=== PATIENT | male | born 1985 | race Caucasian/White ===

== ENCOUNTER 2016-08-18 22:44 | Emergency (ER) | payer OTHER ==
[~2016-08-18] VITALS: Ht 170.2 cm; Wt 75.0 kg
[2016-08-18] MEDS ORDERED: ONDANSETRON 4 MG INJ IV STA (22:50)
[2016-08-18] MEDS ORDERED: SOD CHLORIDE 0.9% 1,000 ML IV STA (22:50)
[2016-08-18 22:51] VITALS: Ht 170.2 cm; Wt 75.0 kg
[2016-08-18 23:07] LABS: ADD SCAN DIFF NO
[2016-08-18 23:11] LABS: ABNORMAL IP MESSAGE 1; BASOPHIL # 0.1 10^3/ul (0.0-0.1); BASOPHILS % 0.4 % (0.0-2.0); EOSINOPHILS # 0.1 10^3/ul (0.0-0.5); EOSINOPHILS % 1.1 % (0.0-7.0); HEMATOCRIT 39.2 % (42.0-52.0); HEMOGLOBIN 13.4 g/dl (14.0-18.0); LYMPHOCYTES # 6.3 10^3/ul (0.8-2.9); LYMPHOCYTES % 47.1 % (15.0-51.0); MEAN CORPUSCULAR HEMOGLOBIN 30.4 pg (29.0-33.0); MEAN CORPUSCULAR HGB CONC 34.2 g/dl (32.0-37.0); MEAN CORPUSCULAR VOLUME 88.9 fl (82.0-101.0); MEAN PLATELET VOLUME 10.1 fl (7.4-10.4); MONOCYTE # 0.9 10^3/ul (0.3-0.9); NEUTROPHIL # 5.9 10^3/ul (1.6-7.5); NEUTROPHILS % 43.9 % (39.0-77.0); PLATELET COUNT 375 10^3/UL (140-415); RED BLOOD COUNT 4.41 10^6/ul (4.70-6.10); RED CELL DISTRIBUTION WIDTH 11.9 % (11.5-14.5); WHITE BLOOD COUNT 13.3 10^3/ul (4.8-10.8)
[2016-08-18] MEDS ORDERED: WELBUTRIN PO (23:11)
[2016-08-18] MEDS ORDERED: AMBIEN PO (23:12)
[2016-08-18] MEDS ORDERED: KLONOPIN PO (23:13)
[2016-08-18] MEDS ORDERED: NORCO PO (23:14)
[2016-08-18 23:15] LABS: ADD UMIC YES; URINE BILIRUBIN (Dip) NEGATIVE (NEGATIVE); URINE BLOOD (Dip) NEGATIVE (NEGATIVE); URINE COLOR YELLOW (YELLOW); URINE GLUCOSE (Dip) NEGATIVE (NEGATIVE); URINE KETONES (Dip) TRACE (NEGATIVE); URINE LEUKOCYTE ESTERASE (Dip) NEGATIVE (NEGATIVE); URINE NITRITE (Dip) NEGATIVE (NEGATIVE); URINE TOTAL PROTEIN (Dip) 1+ (NEGATIVE); URINE UROBILINOGEN (Dip) 0.2 E.U./dL (0.1-1.0)
[2016-08-18 23:22] LABS: ALBUMIN 4.3 g/dl (3.3-4.9)
[2016-08-18 23:25] LABS: ALBUMIN/GLOBULIN RATIO 1.43; CREATININE 0.83 mg/dl (0.61-1.24); TOTAL PROTEIN 7.3 g/dl (6.1-8.1)
[2016-08-18 23:26] LABS: CALCIUM 8.9 mg/dl (8.4-10.2)
[2016-08-18 23:35] LABS: MUCUS,URINE FEW; URINE RBCS NONE SEEN /HPF (0)
[2016-08-18 23:36] LABS: SQUAMOUS EPITHELIAL CELL,UR RARE
--- NOTE | 2016-08-19 00:11 | ERD ---
ER Documentation Chief Complaint Date/Time DATE: 08/19/16 TIME: 00:09 Chief Complaint BIBA FOR OD OF ADDERAL, VYVANSE AND KLONOPIN DENIES SI/HI HPI This is a 31-year-old male took Adderall and Klonopin together. He said he took the Adderall and felt very anxious with the Klonopin to calm himself down. He called EMS afterwards. Denies suicidal homicidal ideation. Denies auditory visual hallucinations. ROS All systems reviewed and are negative except as per history of present illness. Medications Home Meds Reported Medications [[place]] No Conflict Check, PO 08/18/16 [Klonopin] No Conflict Check, PO 08/18/16 [Ambien] No Conflict Check, PO 08/18/16 [Welbutrin] No Conflict Check, PO 08/18/16 Allergies Allergies: Coded Allergies: Sulfa (Sulfonamide Antibiotics) (Unverified Allergy, Unknown, 08/18/16) PMhx/Soc Medical and Surgical Hx: pt denies Surgical Hx Hx Cardiac Disorders: Yes (htn) Hx Psychiatric Problems: Yes (depression, anxiety) Hx Miscellaneous Medical Probl: No Hx Alcohol Use: Yes Hx Substance Use: Yes (marijuana and prescription drugs) Hx Tobacco Use: Yes (chewing tobacco) Smoking Status: Never smoker Physical Exam Vitals Vital Signs Date Time Temp Pulse Resp B/P Pulse Ox O2 Delivery O2 Flow Rate FiO2 08/18/16 22:51 98.8 113 20 178/100 94 Physical Exam Const: [] Head: Atraumatic Eyes: Normal Conjunctiva ENT: Normal External Ears, Nose and Mouth. Neck: Full range of motion..~ No meningismus. Resp: Clear to auscultation bilaterally Cardio: Regular rate and rhythm, no murmurs Abd: Soft, non tender, non distended. Normal bowel sounds Skin: No petechiae or rashes Back: No midline or flank tenderness Ext: No cyanosis, or edema Neur: Awake and alert Psych: Normal Mood and Affect Result Diagram: 08/18/16225108/18/162251 Results 24 hrs Laboratory Tests Test 08/18/16 22:52 08/18/16 23:05 Alanine Aminotransferase (ALT/SGPT) 38IU/L Albumin 4.3g/dl Albumin/Globulin Ratio 1.43 Alkaline Phosphatase 70IU/L Anion Gap 16 Aspartate Amino Transf (AST/SGOT) 32IU/L Basophils # 0.110^3/ul Basophils % 0.4% Blood Urea Nitrogen 15mg/dl Calcium Level 8.9mg/dl Carbon Dioxide Level 28mmol/L Chloride Level 103mmol/L Creatinine 0.83mg/dl Direct Bilirubin 0.00mg/dl Eosinophils # 0.110^3/ul Eosinophils % 1.1% Globulin 3.00g/dl Glucose Level 127mg/dl Hematocrit 39.2% Hemoglobin 13.4g/dl Indirect Bilirubin 0.0mg/dl Lipase 125U/L Lymphocytes # 6.310^3/ul Lymphocytes % 47.1% Mean Corpuscular Hemoglobin 30.4pg Mean Corpuscular Hemoglobin Concent 34.2g/dl Mean Corpuscular Volume 88.9fl Mean Platelet Volume 10.1fl Monocytes # 0.910^3/ul Monocytes % 7.0% Neutrophils # 5.910^3/ul Neutrophils % 43.9% Nucleated Red Blood Cells # 0.010^3/ul Nucleated Red Blood Cells % 0.0/100WBC Platelet Count 10970^3/UL Potassium Level 3.0mmol/L Red Blood Count 4.4110^6/ul Red Cell Distribution Width 11.9% Sodium Level 144mmol/L Total Bilirubin 0.0mg/dl Total Protein 7.3g/dl White Blood Count 13.310^3/ul Urine Bilirubin NEGATIVE Urine Clarity SLIGHTLY CLOUDY Urine Color YELLOW Urine Glucose NEGATIVE% Urine Hemoglobin NEGATIVE Urine Ketones TRACE Urine Leukocyte Esterase NEGATIVE Urine Microscopic RBC NONE SEEN/HPF Urine Microscopic WBC NONE SEEN/HPF Urine Mucus FEW Urine Nitrite NEGATIVE Urine Specific [place] >=1.030 Urine Squamous Epithelial Cells RARE Urine Total Protein 1+ Urine Urobilinogen 0.2 E.U./dL Urine pH 6.0 Current Medications Medications (Trade) Dose Ordered Sig/Hugo Route PRN Reason Start Time Stop Time Status Last Admin Dose Admin Sodium Chloride (NS) 1,000 ml @ 1,000 mls/hr Q1H STAT IV 08/18/16 22:50 08/18/16 23:49 DC 08/18/16 23:49 Ondansetron HCl (Zofran Inj) 4 mg ONCE STAT IV 08/18/16 22:50 08/18/16 22:51 DC 08/18/16 23:47 Procedures/MDM Medical decision-makin-year-old gentleman with polysubstance abuse. At this point is clinically stable. Is and but does not take any prescription medication for the next 24 hours. Follow with PCP. Departure Diagnosis: Primary Impression: Accidental overdose Encounter type: initial encounter Qualified Code: T50.901A - Accidental overdose, initial encounter Condition: Stable ROSANNE BRODY Aug 19, 2016 00:10
[2016-08-19 00:21] VITALS: BP 121/87; PULSE 72; RESP 20; TEMP 98.1
== END 2016-08-19 00:24 | disposition home or self-care (01) ==
LOC: E/R 22:44
DX: T43.691A Poisoning by other psychostimulants, accidental (unintentional), initial encounter (principal); T42.4X1A Poisoning by benzodiazepines, accidental (unintentional), initial encounter; I10 Essential (primary) hypertension; Z87.891 Personal history of nicotine dependence
CPT/HCPCS: 36415; 80053; 81001; 83690; 85025; 93005; 96374; J2405; J7030; Z7502; 81003